=== PATIENT | male | born 1955 | race Caucasian/White ===

== ENCOUNTER → 2020-07-16 | Outpatient (CLI) | payer MEDICARE, OTHER ==
--- NOTE | 2020-07-17 10:03 | MRI ---
EXAM DESCRIPTION: Cervical Spine: MRI. CLINICAL HISTORY: 65 years Male CERVICALGIA COMPARISON: None. TECHNIQUE: Multiplanar, high-field MRI, multiple sequences, non-contrast Cervical spine. FINDINGS: CT C3: Minimal arthrosis in the right facet joint but no significant neural foraminal narrowing. Normal signal and position of the disc. Left facet is negative. Canal and left neural foramina are patent. C3-C4: Minimal disc desiccation and disc space loss. Minimal bilateral facet arthrosis and hypertrophy. Bilateral uncinate spurs, larger on the right. Minimal canal narrowing. Severe right neural foraminal narrowing versus borderline stenosis. Moderate narrowing left neural foramen. C4-C5: Posterior midline tiny bulge and spur formation abutting the ventral cord. Severe right neural foraminal narrowing with left neuroforamen patent. Mild canal narrowing. C5-C6: Disc desiccation with disc space loss. Anterior disc bulge. Posterior midline and right paracentral protrusion 4 mm impressing the right ventral with right uncinate spur. Right paracentral mild canal stenosis Bilateral facet joints are unremarkable. Right neural foraminal stenosis Small perineural cyst left foramen, but patent. C6-C7: Minimal anterior disc bulging. Minimal disc desiccation. Facet joints are unremarkable. Thickened posterior ligaments and minimal canal narrowing. Bilateral neural foramina are patent. Normal signal in the C7-T1 disc and T1-T2 disc with no bulging. Disc spaces preserved. Canal and neural foramina are patent. Facet joints negative. Spinal alignment kyphosis C4-C6. No cord compression or cord edema. Atlantoaxial joint minimal arthrosis. Posterior joint capsule abutting the ventral cord but no touching. Base of the cerebellar tonsils is above the foramen magnum. Paravertebral soft tissues negative.. Vertebral bodies are not compressed at any level. Normal marrow signal in the vertebral bodies and the posterior elements. IMPRESSION: 1. C3-4 bilateral uncinate spurs and severe right neural foraminal narrowing versus borderline stenosis. Correlate for right C4 radiculopathy. 2. Severe right neural foraminal narrowing at C4-C5. Correlate for right C5 radiculopathy. 3. Right posterior protrusion C5-C6 disc impressing on the cord with mild canal stenosis. Right neural foraminal stenosis. Correlate for right C6 radiculopathy. Electronically signed by: Glen Hale MD 07/17/2020 10:01 AM CDT
== END ==
LOC: MRI 10:01
PROVIDERS: ATTEND Family Medicine
DX: M48.03 Spinal stenosis, cervicothoracic region (principal); M25.78 Osteophyte, vertebrae; M50.222 Other cervical disc displacement at C5-C6 level

== ENCOUNTER → 2020-07-17 | Outpatient (CLI) | payer MEDICARE, OTHER ==
--- NOTE | 2020-07-18 10:43 | MRI ---
EXAM DESCRIPTION: Lumbar Spine w/o Contrast : Magnetic Resonance Imaging. CLINICAL HISTORY: DORSALGIA CHRONIC BACK PAIN COMPARISON: MRI scan cervical spine on the same visit. TECHNIQUE: Multiplanar, multiple standard sequences, non contrast MRI, lumbar spine. FINDINGS: L5-S1: The disc is well visualized on axial T2 series 501, image 3. Desiccated disc and disc space loss. Posterior midline and left paracentral 5 mm disc protrusion impressing on the left subarticular recess with stenosis and also the left S1 nerve. Hyperintense T2 weighted annular fissure in the posterior protruding disc margin. Minimal hypertrophic changes in the facet joints and the posterior flavum ligaments (canal elements). AP canal diameter 11 mm. Severe bilateral foraminal narrowing, more on the left. L4-L5: Disc desiccation and minimal disc space loss. Posterior paracentral bulge of the disc 4 mm impressing on the ventral thecal sac, effacing the left subarticular recess and impressing on the left L5 nerve. Hypertrophic changes in the canal elements with left facet joint and ligament also abutting the descending left L5 nerve. Minimal endplate reactive changes and Schmorl's nodes in the endplates to the right of midline. Left paracentral moderate canal narrowing. Mild left foraminal narrowing and moderate right foraminal narrowing. L3-L4: Disc desiccation minimal anterior bulging. Disc space preserved. Left anterior disc bulge and endplate spurs. Minimal hypertrophic changes in the canal elements. Mild canal narrowing. Mild bilateral foraminal narrowing. L2-L3: Normal signal in the disc with no space narrowing. Minimal hypertrophy of the canal elements. Bilateral foramina and canal are patent. L1-L2: Normal signal in the disc with disc space preserved. Canal elements are unremarkable. Bilateral foramina and canal are patent. Conus terminates at L1. T12-L1: Minimal disc desiccation with disc space preserved. Canal elements unremarkable. Bilateral foramina and canal are patent. Minimal lower lumbar left convex scoliosis. No significant spondylolisthesis. Paravertebral soft tissues unremarkable.. Distal cord normal signal and caliber. Abnormal marrow signal in the remaining vertebral bodies and the posterior elements. Vertebral bodies are not compressed at any level. IMPRESSION: 1. Multiple levels of disc desiccation and hypertrophic changes in the posterior flavum ligaments and facet joints. 2. Left posterior protrusion of the L5-S1 disc with annular fissure encroaching on the left subarticular recess and the descending left S1 nerve. Moderate canal narrowing. Correlate for left S1 radiculopathy. Severe bilateral foraminal narrowing more on the left. 3. Left posterior protrusion of the L5-S1 disc with annular fissure encroaching on the left subarticular recess and the descending left L5 nerve. Mild spondylosis on the right side of the disc endplates. Moderate canal narrowing. 4. Please refer to FINDINGS for discussion of results at other disc space levels. Electronically signed by: Glen Hale MD 07/18/2020 10:41 AM CDT
== END ==
LOC: MRI 09:53
PROVIDERS: ATTEND Family Medicine
DX: M51.36 Other intervertebral disc degeneration, lumbar region (principal); M47.896 Other spondylosis, lumbar region; M51.27 Other intervertebral disc displacement, lumbosacral region; M47.897 Other spondylosis, lumbosacral region; M24.28 Disorder of ligament, vertebrae

== ENCOUNTER 2020-09-13 16:47 | Emergency (ER) | payer MEDICARE, OTHER ==
[2020-09-13] MEDS ORDERED: KETOROLAC TROMETHAMINE INJ 30 MG/ML VIAL IM ONE (17:21)
--- NOTE | 2020-09-13 18:11 | RAD ---
EXAM DESCRIPTION: Ribs,Left 2 Views (accession [id number]), Chest,2 Views (accession [id number]) TECHNIQUE: PA and lateral views of the chest as well as additional AP and oblique views of the left ribs are obtained. The left 12th rib is not fully demonstrated. CLINICAL HISTORY: Male, 65 years presents with Fall COMPARISON: None FINDINGS: Heart: The heart is normal in size and configuration. Vasculature: There is no evidence of aortic aneurysm or acute findings. The pulmonary vascularity is normal. Mediastinum: No evidence of mass or adenopathy. Lungs: There is no focal consolidation in the lungs. Pleural Spaces: There are no pleural effusions. There are no pneumothoraces. Osseous Structures: There is no evidence of acute fracture, osseous destruction or osteoblastic lesions. There are diffuse enthesopathic changes, including a rolling pattern of ossification in the spine, consistent with diffuse idiopathic skeletal hyperostosis (DISH). There are mild degenerative changes in the shoulders. Tubes and Catheters: None Upper Abdomen: No acute findings. Chest Wall: Unremarkable. IMPRESSION: No significant [acute] radiographic abnormalities in the chest. No acute osseous abnormalities. Specifically, the left ribs appear intact. However, the the 12th rib is not fully demonstrated. Electronically signed by: Tawny Madden MD 09/13/2020 6:09 PM [employer]
--- NOTE | 2020-09-13 18:11 | RAD ---
EXAM DESCRIPTION: Ribs,Left 2 Views (accession [id number]), Chest,2 Views (accession [id number]) TECHNIQUE: PA and lateral views of the chest as well as additional AP and oblique views of the left ribs are obtained. The left 12th rib is not fully demonstrated. CLINICAL HISTORY: Male, 65 years presents with Fall COMPARISON: None FINDINGS: Heart: The heart is normal in size and configuration. Vasculature: There is no evidence of aortic aneurysm or acute findings. The pulmonary vascularity is normal. Mediastinum: No evidence of mass or adenopathy. Lungs: There is no focal consolidation in the lungs. Pleural Spaces: There are no pleural effusions. There are no pneumothoraces. Osseous Structures: There is no evidence of acute fracture, osseous destruction or osteoblastic lesions. There are diffuse enthesopathic changes, including a rolling pattern of ossification in the spine, consistent with diffuse idiopathic skeletal hyperostosis (DISH). There are mild degenerative changes in the shoulders. Tubes and Catheters: None Upper Abdomen: No acute findings. Chest Wall: Unremarkable. IMPRESSION: No significant [acute] radiographic abnormalities in the chest. No acute osseous abnormalities. Specifically, the left ribs appear intact. However, the the 12th rib is not fully demonstrated. Electronically signed by: Tawny Madden MD 09/13/2020 6:09 PM COUNT TEAM MEMBER
--- NOTE | 2020-09-13 18:22 | RAD ---
EXAM DESCRIPTION: Sacrum Coccyx CLINICAL HISTORY: 65 years, Male, Fall COMPARISON: None. FINDINGS: Two frontal views of the sacrum and coccyx were performed. No lateral view is available. The sacral ala are grossly intact. Stool overlies portions of the distal sacrum and coccyx but no fracture is seen. Grossly symmetric sacroiliac joints. The ilioischial and iliopectineal lines are intact. Both hip joints are intact with mild joint space narrowing and osteophyte production. Pubic symphysis is intact. IMPRESSION: No sacral or coccygeal fracture is detected on two frontal radiographs. The sacrum and coccyx are partially obscured by overlying stool. If pain persists, recommend repeat imaging including a lateral radiograph in 7-10 days. Electronically signed by: Kailee Ward MD 09/13/2020 6:20 PM [facility]
--- NOTE | 2020-09-13 18:26 | ED.PDOC ---
History of Present Illness - General Chief Complaint: Trauma Stated Complaint: L rib pain, sacrum/coccyx pain, L cheek abrasion Time Seen by Provider: 09/13/20 17:20 Source: patient Exam Limitations: no limitations - History of Present Illness Initial Comments: The patient is a 65-year-old male presented to emergency room secondary to having been tripped up by a dog that he had on the leash. He fell towards his left side onto the asphalt. He has a mild abrasion to the left cheek. No more significant injury to the head and no neck pain. He scraped his left elbow but is moving it well. Primarily he is having some pain to the left lateral lower rib cage. It is tender to palpation. There is no abrasion and no bruising. No crepitus. He also hit his rear end. It is not hurting him very much and there is no abrasion. He has been ambulatory since. No syncope. Timing/Duration: momentarily Severity: moderate Improving Factors: immobilization Worsening Factors: movement Associated Symptoms: chest pain Allergies/Adverse Reactions: Allergies Sulfa Antibiotics Allergy (Verified 09/13/20 17:01) Home Medications: Ambulatory Orders [id number]-[id number] [Fioricet] 1 ea PO Q8H PRN #21 tab 09/13/20 Review of Systems - Review of Systems Constitutional: States: no symptoms reported EENTM: States: no symptoms reported Respiratory: States: no symptoms reported Cardiology: States: chest pain Gastrointestinal/Abdominal: States: no symptoms reported Genitourinary: States: no symptoms reported Musculoskeletal: States: see HPI Skin: States: see HPI Neurological: States: no symptoms reported Endocrine: States: no symptoms reported All other Systems: No Change from Baseline Past Medical History (General) - Patient Medical History Hx Stroke: No Hx of COPD: No Hx Cardiac Disorders: No Hx Hypertension: No Hx Thyroid Disease: Yes Hx Diabetes: No Hx Cancer: Yes - Head and neck - Vaccination History Hx Influenza Vaccination: Yes Hx Pneumococcal Vaccination: Yes - Social History Hx Tobacco Use: No Hx Alcohol Use: Yes Hx Substance Use: No Hx Substance Use Treatment: No Hx Depression: No - Female History Patient is a Female of Child Bearing Age (10 -59 yrs old): No Patient : No Family Medical History - Family History Mother Family History: No Known Living Status: Still Living Physical Exam - Physical Exam General Appearance: Alert, Anxious Eye Exam: bilateral normal Ears, Nose, Throat: hearing grossly normal, normal pharynx Neck: non-tender, full range of motion, supple Respiratory: lungs clear, normal breath sounds, no respiratory distress, no accessory muscle use, other - Chest wall is tender to palpation. See above. 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 No significant lacerations. Comments: Vital Signs - 24 hr 09/13/20 17:05 Temperature 97.9 F Pulse Rate [ 82 Pulse ox] Respiratory 18 Rate Blood Pressure 176/99 [R arm] O2 Sat by Pulse 100 Oximetry Progress - Progress Progress: 09/13/20 18:27 The patient is a 65-year-old male presents emergency room after an accidental fall. He is primarily having left rib cage pain. This appears to only be a strain or internal bruise. No visible fractures are seen on the x- ray. No underlying pathology is noted either. The patient can use Motrin for pain control. He was given a dose of Toradol here. He will be written for prescription for Fioricet for as needed use. He does need to take big deep breaths in order to prevent fluid collecting in the bottom of his lungs which can lead to pneumonia. He needs to keep himself well-hydrated. He needs to do some stretching exercises to prevent muscle spasms. ER warnings are given for any significant worsening. He needs to keep routine follow-up with his primary care doctor and a specialist. aquiles hanson [id number] - Results/Orders Results/Orders: X-rays of the chest and left rib series shows no evidence of any significant fracture. No pneumothorax or effusion. No evidence of fractures otherwise. No widening of the mediastinum. The limited series of the sacrum and coccyx shows no obvious pathology. The patient refused the full series secondary to not wanting to move around the images. Departure - Departure Clinical Impression: Rib pain on left side Accidental fall Qualifiers: Encounter type: initial encounter Qualified Code(s): W19.XXXA - Unspecified fall, initial encounter Disposition: Discharge to Home or Self Care Condition: Fair Departure Forms: ED Discharge - Pt. Copy, Patient Portal Self Enrollment Diet: regular diet Activity: increase activity as tolerated Referrals: Calvin Villarreal MD [Primary Care Provider] - 1-2 Weeks Prescriptions: Tibmghrrhxvsx-Xhty-Mbzrtwzuhy [Fioricet] 1 ea PO Q8H PRN #21 tab PRN Reason: Pain Home Medications: Ambulatory Orders [id number]-Masa-Unqqxokxgt [Fioricet] 1 ea PO Q8H PRN #21 tab 09/13/20 Additional Instructions: The patient is a 65-year-old male presents emergency room after an accidental fall. He is primarily having left rib cage pain. This appears to only be a strain or internal bruise. No visible fractures are seen on the x- ray. No underlying pathology is noted either. The patient can use Motrin for pain control. He was given a dose of Toradol here. He will be written for prescription for Fioricet for as needed use. He does need to take big deep breaths in order to prevent fluid collecting in the bottom of his lungs which can lead to pneumonia. He needs to keep himself well-hydrated. He needs to do some stretching exercises to prevent muscle spasms. ER warnings are given for any significant worsening. He needs to keep routine follow-up with his primary care doctor and a specialist.
[2020-09-13 19:12] VITALS: BP 145/85; TEMP 98.4; O2SAT 98
== END 2020-09-13 18:43 | disposition home or self-care (01) ==
LOC: ER 16:47
DX: R07.81 Pleurodynia (principal); S00.81XA Abrasion of other part of head, initial encounter; S50.312A Abrasion of left elbow, initial encounter; E07.9 Disorder of thyroid, unspecified; W01.0XXA Fall on same level from slipping, tripping and stumbling without subsequent striking against object, initial encounter; Z85.89 Personal history of malignant neoplasm of other organs and systems; Z88.2 Allergy status to sulfonamides
CPT/HCPCS: 71046; 71100; 72220; J1885